=== PATIENT | male | born 1960 | race Caucasian/White ===

== ENCOUNTER 2025-10-02 06:56 | Emergency (ER) | payer OTHER, SELFPAY ==
[2025-10-02 07:12] VITALS: BP 104/61
--- NOTE | 2025-10-02 07:31 | ED.GENMED ---
History of Present Illness
General
Chief Complaint: Back Pain
Source: patient
Exam Limitations: none
Time Seen by Provider: 10/02/25 07:19
Nursing documentation reviewed up to this point in time: agreed with
History of Present Illness
History of Present Illness:
see mMD
Past History
Past History
ED Past Medical History: None
ED Past Surgical History: None
Social History
Tobacco: Non-smoker
Alcohol: None
Drug: None
Review of Systems
Review of Systems
Allergies reviewed?: Yes
All Other Systems: Not applicable
Phy Exam
Physical Exam
Physical Exam:
See MDM
Course
Orders/Labs/Results
Orders:
Orders
10/02/25 07:29
CT Abd/pel Without Iv Or Oral Urgent
Comment:
Reason For Exam: lower back pain, nausea/vomiting
Bladder Scan- Treatment ONCE
0.9% Sodium Chloride 1000 ml [Nss] 1,000 ml IV BOLUS
HYDROmorphone [Dilaudid] 1 mg IV NOW STA
Ketorolac [Toradol] 15 mg IV NOW STA
10/02/25 07:33
Complete Blood Count/With Diff Urgent
Comprehensive Metabolic Panel Urgent
10/02/25 07:56
Ondansetron Injectable [Zofran] 4 mg IV NOW STA
10/02/25 09:00
Tamsulosin [Flomax] 0.4 mg PO NOW STA
10/02/25 09:34
Urinalysis Reflex To Culture Urgent
Date Specimen was Collected: 10/02/25
Time Specimen was Collected: 09:33
Urine Microscopic Reflex Cult Urgent
Urine Culture Urgent
[facility]KE Source: U
Specimen Description:
Date Specimen was Collected: 10/02/25
Time Specimen was Collected: 09:33
Abnormal Lab Results
10/02/25 10/02/25
07:33 09:34
RBC 4.60 L 10^6/uL
(4.70-6.10)
Absolute Neuts (auto) 8.5 H 10^3/uL
(1.4-6.5)
Absolute Lymphs (auto) 0.6 L 10^3/uL
(1.2-3.4)
Neutrophils % 88.7 H %
(42.2-75.2)
Lymphocytes % 6.0 L %
(20.5-51.1)
Glucose 128 H mg/dl
(70-99)
Urine Ketones 1+ A
(Negative)
Urine Bacteria (Reflex) Moderate A
(Negative)
Urine Albumin (Reflex) 2+ A
(Neg - Trace)
10/02/25 07:33
10/02/25 07:33
Vital Signs
Initial and Last Documented VS:
Initial Vital Signs
Temp Pulse Resp Pulse Ox
36.7 C 50 16 98
10/02/25 07:00 10/02/25 07:00 10/02/25 07:00 10/02/25 07:00
Last Documented Vital Signs
Temp Pulse Resp BP Pulse Ox
36.7 C 46 10 95/62 94
10/02/25 07:00 10/02/25 10:00 10/02/25 09:00 10/02/25 10:00 10/02/25 10:00
MDM/Problems Addressed
Differential Diagnosis Includes:
See MDM
MDM/Problems Addressed:
Note:
CHIEF COMPLAINT(S)
Lower back pain
HISTORY OF PRESENT ILLNESS
The patient is a 64-year-old male who presented to the emergency department with complaints of lower back pain. The pain began mildly around midnight, he thought he was having muscle spasm. was able to go to sleep but suddenly at around 2:30 AM, as
reported by the patient, severity of the pain woke him up. He described the pain as originating in the lower middle of his back and extending downwards towards the L side , but not shooting down his legs or involving the groin. Before the onset of
pain, the patient reported normal urination at midnight, but noted difficulty urinating since the pain began, feeling the urge but being unable to void. He took pain medication, which he vomited shortly after administration. The patient reports no
prior history of kidney stones or similar pain. The patient denied any pain upon changing positions and has no previous history of such pain.
vomit x 2
no dysuria
no hematuria
no leg weakness
no cp, sob
no h/o aortic disease
PAST MEDICAL AND SURGICAL HISTORY
The patient does not have a history of hypertension, hyperlipidemia, diabetes, or cancer.
PHYSICAL EXAM
- Nursing notes reviewed and vital signs reviewed.
GENERAL: Alert, uncomfortable
Neck: supple
CARDIAC: Regular rate and rhythm .
LUNGS: Clear breath sounds bilaterally, no acute respiratory distress, no wheezes/rales/rhonchi
ABDOMEN: Soft, normal bowel sounds, nondistended, no abdominal tenderness, no guarding, no rebound, neg huston's
: normal inspection of region
nontender testicles b/l
no rashes
NEUROLOGICAL: Alert and oriented, no focal neuro deficits, 5/5 strength
SKIN: Warm and dry, skin intact.
PSYCH: Normal and appropriate interaction.
PROBLEM LIST
Acute:
- Acute lower back pain
- Difficulty urinating
- Recent episode of vomiting after taking pain medication
PLAN
- Administration of Dilaudid for severe pain management.
- Administration of Toradol as an anti-inflammatory medication, similar to ibuprofen.
- Administration of an anti-nausea medication to address vomiting.
DIFFERENTIAL DIAGNOSIS
The Differential Diagnosis includes, in no particular order and is not limited to:
1. Acute lumbar strain
2. Renal colic secondary to kidney stones
3. Urinary tract infection
4. Degenerative disc disease
5. Musculoskeletal back pain
6. Pyelonephritis
7. Prostatitis
8. Radiculopathy
9. Compression fracture
10. Abdominal aortic aneurysm
64-year-old male with severe left-sided back pain radiating to his left groin, woke him up out of sleep, never had a kidney stone before. Feels the urge to pee but could not really pee well
Bladder scan normal
Urine without obvious signs of infection, few bacteria but no leukocytes or nitrates. His creatinine is normal. Pain controlled after Dilaudid and Toradol
CARE-UPDATE
10/02/25 - 09:40
The patient has a 7mm stone at the UVJ, which is expected to pass soon given its proximity to the bladder. Flowmax is prescribed once daily to facilitate passage. The patient is instructed to strain urine using a provided strainer to catch the
stone. The urinalysis is pending to confirm no infection, though kidney function and blood work are normal, suggesting discharge is likely if the urine is clear. Pain management includes Tylenol (up to three times a day) and oxycodone as needed, but
caution is advised against mixing oxycodone with Vicodin. Referral details for a urologist have been provided due to the potential for future stone formation or complications.
*Pulse Oximetry
SaO2: 98
Oxygen Mode of Delivery: Room air
Patient hypoxic: no (94)
*Critical Care Note
Total Time (30-74mins, 75-104mins- exclusive of procedures): Not Applicable
ED Attending Note
-
Portions of this chart may have been created with voice recognition software.� Occasional wrong word or��sound alike� substitutions may have occurred due to the inherent limitations of voice recognition software.
Discharge Plan
Departure
Patient Disposition: Home (Routine Discharge)
Date of Disposition: 10/02/25
Time of Disposition: 10:01
Patient with high blood pressure during this ER visit?: No
Discharge Problem:
Kidney stone
Instructions: Kidney stones in adults - ED (DC)
Prescriptions:
New
tamsulosin 0.4 mg capsule
0.4 mg PO DAILY Qty: 10 0RF
oxycodone 5 mg tablet
5 mg PO Q8H PRN (Reason: Pain) Qty: 9 0RF
Referrals:
Aly Olivas MD [Active, Urology] - Follow up in 1 week
Edil Arvizu MD [Family Provider, Family Practice]
Activity Restrictions/Additional Instructions:
KEEP STAYING HYDRATED
TAKE FLOMAX 0.4 MG ONCE A DAY UNTIL YOU PASS THE STONE
URINATE THROUGH THE STRAINER EACH TIME YOU PEE
TAKE TYLENOL 2 EXTRA STRENGTH TABS 3 TIMES A DAY FOR PAIN
IF PAIN IS SEVERE YOU CAN TRY OXYCODONE 5 MG EVERY 6 HOURS NEEDED, THIS IS A NARCOTIC AND YOU CANNOT DRIVE OR DRINK ON THIS MEDICATION.
RETURN FOR: SEVERE PAIN, VOMITING, FEVER, NOT URINATING OR ANY CONCERNS.
OTHERWISE FOLLOW UP WITH the UROLOGIST
Interventions
Interventions:
*Risk Screen - Suicide Last Done: 10/02/25 07:00
*General Assessment Last Done: 10/02/25 07:19
*Neglect/Abuse Screening Last Done: 10/02/25 07:00
*ED COVID-19 Vaccine History Last Done: 10/02/25 07:00
*ED Influenza Vaccine History Last Done: 10/02/25 07:00
*Nursing Disposition Last Done: 10/02/25 10:18
ED-Musculoskeletal Assessment Last Done: 10/02/25 07:19
Discharge Date and Time
Discharge Date/Time: 10/02/25 10:22
Print Language: ERITREAN
[2025-10-02] MEDS: NSS 1000 IV (07:38)
[2025-10-02 07:46] LABS: Hematocrit 40.6 % (39.0-52.0); Hemoglobin 14.1 g/dL (13.0-18.0); Mean Corp Hgb Conc. 34.7 g/dL (33.0-37.0); Mean Corpuscular Volume 88.3 fL (80.0-94.0); Nucleated Red Blood Cells % 0 % (-); Platelet Count 217 10^3/uL (130-400); Red Cell Dist. Width 12.3 % (11.5-14.5)
[2025-10-02] MEDS: TORADOL 15 MG IV (07:48)
[2025-10-02] MEDS: DILAUDID 1 MG IV (07:49)
[2025-10-02] MEDS: ZOFRAN 4 MG IV (08:09)
[2025-10-02 08:21] LABS: ALT (SGPT) 31 U/L (0-50); AST (SGOT) 28 U/L (17-59); Albumin 4.3 g/dl (3.5-5.0); Alkaline Phosphatase 89 U/L (38-126); Blood Urea Nitrogen 20 mg/dl (9-20); Calcium 9.4 mg/dl (8.4-10.2); Carbon Dioxide 26 mmol/L (22-30); Chloride 104 mmol/L (98-107); Glucose 128 mg/dl (70-99); Potassium 4.6 mmol/L (3.5-5.1); Sodium 135 mmol/L (135-145); Total Protein 6.8 g/dl (6.3-8.2); eGFR > 60.00
[2025-10-02 09:00] VITALS: BP 88/64
[2025-10-02] MEDS: FLOMAX 0.4 MG PO (09:31)
[2025-10-02 09:53] LABS: Urine Character Clear (Clear)
[2025-10-02 10:00] VITALS: BP 95/62
[2025-10-02 10:03] LABS: Urine Red Blood Cell 0-2 /HPF (0-2); Urine Squamous Cell 0-2 /LPF (Few)
== END 2025-10-02 10:22 | disposition home or self-care (01) ==
LOC: EMR 06:56
PROVIDERS: Physician Assistant; EMERGENCY PHYSICIAN Emergency Medicine; FAMILY PHYSICIAN Family Medicine
DX: N13.2 Hydronephrosis with renal and ureteral calculous obstruction (principal)
CPT/HCPCS: 99284; 96374; 96375 ×2; 96361; 74176; 80053; 81003; 81015; 85025; 87086